=== PATIENT | female | born 1995 | race Caucasian/White ===

== ENCOUNTER 2017-07-11 13:32 | Emergency (ER) | payer OTHER ==
[2017-07-11 14:08] VITALS: BP 107/67; PULSE 66; RESP 20; TEMP 98.4; O2SAT 100
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
[2017-07-11] MEDS ORDERED: CEFTRIAXONE IM 350 MG/ML SYRINGE IM ONE (15:45)
[2017-07-11] MEDS ORDERED: AZITHROMYCIN 250 MG TAB PO ONE (15:45)
== END 2017-07-11 18:45 | disposition home or self-care (01) ==
LOC: SANE 13:32
DX: T74.21XA Adult sexual abuse, confirmed, initial encounter (principal)
CPT/HCPCS: J0696